=== PATIENT | male | born 1980 | race Caucasian/White ===

== ENCOUNTER 2019-11-05 12:11 | Emergency (ER) | payer BC, SELFPAY ==
[2019-11-05 12:30] VITALS: BP 144/76; PULSE 75; RESP 18; TEMP 36.7; O2SAT 99
[2019-11-05] MEDS: TETANUS,DIPHTHERIA,AC PERTUSSIS ADULT (0.5 ML) BOOSTRIX IM (12:45)
--- NOTE | 2019-11-05 14:08 | ED.WOUNDLAC ---
HPI - Wound/Laceration General Chief Complaint: Wound/Laceration Stated Complaint: R THUMB INJURY Time Seen by Provider: 11/05/19 12:15 Source: patient Mode of arrival: ambulatory Limitations: no limitations History of Present Illness HPI narrative: Patient presents with chief complaint of laceration to the volar aspect of right thumb. Patient was lifting a metal object when it sliced his thumb. Patient reports tingling sensation to the tip of the thumb. Patient denies loss of range of motion. Patient denies any other areas of injury. Patient denies crush injury to the thumb. Patient states he does not think he is up-to-date on tetanus. Related Data Home Medications Medication Instructions Recorded Confirmed No Home Medications 11/05/19 11/05/19 Allergies Allergy/AdvReac Type Severity Reaction Status Date / Time No Known Allergies Allergy Mild Verified 05/04/10 12:14 Review of Systems Review of Systems: Narrative: CONSTITUTIONAL: Denies fever, chills, or sweats. EYES: Denies visual changes, redness, or discharge. ENT: Denies rhinorrhea, congestion, sore throat, or otalgia. CARDIOVASCULAR: Denies chest pain, palpitations, or edema. RESPIRATORY: Denies cough or dyspnea. GASTROINTESTINAL: Denies abdominal pain, nausea, vomiting, or diarrhea. GENITOURINARY: Denies dysuria or hematuria. SKIN: Reports laceration denies rash or itching. MUSCULOSKELETAL: Denies back pain, joint pain, or myalgia. NEUROLOGIC: Denies headache, numbness, dizziness, or weakness. PSYCHIATRIC: Denies anxiety or depression. Exam Narrative: Exam Narrative: GENERAL: Well-appearing, well-nourished, and in no acute distress. HEAD: Normocephalic, atraumatic. EYES: PERRLA and EOMI. ENT: External ears nose and throat appear normal NECK: Supple. Range of motion intact CHEST: No respiratory distress. No tachypnea ABDOMEN: Soft, nontender, nondistended, normal active bowel sounds. EXTREMITIES: Normal range of motion. No edema. SKIN: 6 cm U shaped- flapped laceration to the volar aspect of right thumb. warm, dry, no rash. Sensation felt at tip of finger. Extension intact.Flexion noted with slight limit, swelling present. NEURO: No focal deficits. Alert and oriented x3. PSYCH: Normal mood and affect. Course Vital Signs Vital signs: Vital Signs Temperature 98.1 F 11/05/19 12:30 Pulse Rate 75 11/05/19 12:30 Respiratory Rate 18 11/05/19 12:30 Blood Pressure 144/76 H 11/05/19 12:30 Pulse Oximetry 99 11/05/19 12:30 Temperature 98.1 F 11/05/19 12:30 Pulse Rate 75 11/05/19 12:30 Respiratory Rate 18 11/05/19 12:30 Blood Pressure 144/76 H 11/05/19 12:30 Pulse Oximetry 99 11/05/19 12:30 Procedures Laceration Laceration 1: Site: hand Side (If applicable): right (thumb) Size (cm): 6 Description: flap (U shaped) Local Anesthetic: lidocaine 1% Amount of anesthesia used (mL): 1.5 Pre-repair: irrigated extensively ====== Skin Level ====== Skin layer closed with: prolene Size (cm): 4-0 Number of sutures: 7 ====== Subcutaneous Layer ====== ====== Muscle Layer ====== ====== Tendon Layer ====== Dressing: neosporin and non stick telfa MDM - Wound/Laceration MDM Narrative Medical decision making narrative: Discussed with patient wound care and the need for follow-up. Discussed suture removal in approximately 10 to 14 days. Patient will be placed in a splint to avoid putting tension on sutures. Patient directed to follow-up primary care if any signs of infection present. Patient verbalized understanding of plan denies any other questions or concerns. Differential Diagnosis Differential diagnosis: Likely laceration, abscess, abrasion and avulsion of skin Discharge Plan Discharge Instructions: Antibiotic Form, Laceration (ED) Additional Instructions: Sutures can be evaluated for removal in 10 to 14 days. Wash hands with antib
== END 2019-11-05 14:33 | disposition home or self-care (01) ==
PROVIDERS: Emergency Provider Emergency Medicine
DX: S61.011A Laceration without foreign body of right thumb without damage to nail, initial encounter (principal); W26.9XXA Contact with unspecified sharp object(s), initial encounter; Z23 Encounter for immunization
CPT/HCPCS: 12002; 90471; 90715; 99282